=== PATIENT | male | born 1985 | race American Indian/Alaskan Native ===

== ENCOUNTER 2017-12-28 12:24 | Inpatient (IN) | payer MEDICAID ==
[2017-12-28 13:21] LABS: BASO % 0.6 % (0.0-2.0); EOS # 0.1 K/uL (0.0-0.7); EOS % 1.9 % (0.0-4.0); HEMOGLOBIN 12.3 g/dL (12.0-18.0); LYMPH # 1.7 K/uL (1.0-4.3); LYMPH % 36.9 % (20.0-40.0); MEAN CELL VOLUME 81.6 fL (80.0-94.0); MEAN CORPUSCULAR HEMOGLOBIN 27.6 pg (27.0-31.0); MEAN CORPUSCULAR HGB CONC 33.9 g/dL (33.0-37.0); MEAN PLATELET VOLUME 6.9 fL (7.2-11.7); MONO # 0.4 K/uL (0.0-0.8); NEUT # 2.4 K/uL (1.8-7.0); NEUT % 51.6 % (50.0-75.0); RBC 4.44 Mil/uL (4.40-5.90); RED CELL DISTRIBUTION WIDTH 13.7 % (11.5-14.5); WHITE BLOOD COUNT 4.7 K/uL (4.8-10.8)
[2017-12-28 13:36] LABS: BARBITURATES, UR NEGATIVE (NEGATIVE); BENZODIAZEPINES, UR NEGATIVE (NEGATIVE); PHENCYCLIDINE, UR NEGATIVE (NEGATIVE); SQUAMOUS EPITHIAL 1 /hpf (0-5); URINE BILIRUBIN NEGATIVE (NEGATIVE); URINE BLOOD 1+ (NEGATIVE); URINE CLARITY Hazy (Clear); URINE COLOR Yellow (YELLOW); URINE GLUCOSE (UA) NORMAL (Normal); URINE LEUKOCYTE ESTERASE NEG Leu/uL (Negative); URINE PROTEIN 1+ mg/dL (NEGATIVE); URINE UROBILINOGEN NORMAL mg/dL (0.2-1.0)
[2017-12-28 13:40] LABS: ALBUMIN 4.2 g/dL (3.5-5.0); ALT/SGPT 34 U/L (21-72); AST/SGOT 24 U/L (17-59); BLOOD UREA NITROGEN 19 mg/dL (9-20); CALCIUM 9.6 mg/dl (8.6-10.4); GFR NON-AFRICAN AMERICAN > 60; OPIATES, UR POSITIVE (NEGATIVE)
--- NOTE | 2017-12-28 13:51 | C.PDOC ---
History Of Present Illness 32 y/o male presents to the ER for detox from heroin and cocaine. Patient states that he is prescreened. Patient denies having suicidal ideation, homicidal ideation, and active physical complaints. Time Seen by Provider: 12/28/17 12:49 Chief Complaint (Nursing): Substance Abuse History Per: Patient History/Exam Limitations: no limitations Past Medical History Reviewed: Historical Data, Nursing Documentation, Vital Signs Vital Signs: Last Vital Signs Temp 98.4 F 12/28/17 12:36 Pulse 96 H 12/28/17 12:36 Resp 16 12/28/17 12:36 BP 136/90 12/28/17 12:36 Pulse Ox 98 12/28/17 12:36 - Medical History PMH: HTN, Seizures Other Surgeries: Hx of surgeries Family History: States: No Known Family Hx - Social History Hx Alcohol Use: No Hx Substance Use: Yes (last use yesterday) - Immunization History Hx Influenza Vaccination: No Hx Pneumococcal Vaccination: No Review Of Systems Except As Marked, All Systems Reviewed And Found Negative. Constitutional: Negative for: Fever, Chills Physical Exam - Physical Exam Appears: No Acute Distress, Other (tall, thin black male) Skin: Normal Color, Warm, Dry Head: Atraumatic, Normacephalic Eye(s): bilateral: Normal Inspection Nose: Normal Oral Mucosa: Moist Neck: Supple Chest: Symmetrical Cardiovascular: Rhythm Regular Respiratory: Normal Breath Sounds, No Rales, No Rhonchi, No Wheezing Gastrointestinal/Abdominal: Normal Exam, Soft, No Tenderness, No Guarding, No Rebound Neurological/Psych: Oriented x3, Normal Speech ED Course And Treatment - Laboratory Results Result Diagrams: 12/28/17 13:14 12/28/17 13:14 Lab Interpretation: Abnormal (tox + cocaine/opiates) ECG: Interpreted By De ECG Rhythm: Sinus Rhythm ECG Interpretation: Normal O2 Sat by Pulse Oximetry: 98 (RA) Pulse Ox Interpretation: Normal - Radiology CXR: Interpreted by De CXR Interpretation: Yes: No Acute Disease Reevaluation Time: 15:29 Reassessment Condition: Improved - Physician Consult Information Outcome Of Conversation: 1440: d/w Dr. Weiss, Medicine Watch Hairspring Assembler, ok to admit. 1500: Neuro Consult w Dr. Dumont- Neuro Watch Hairspring Assembler ordered Medical Decision Making Medical Decision Making: Plan: --Labs --UA seizure: h/o tbi/seizure ? compliance with depakote 750 PO BID Seizure x 2 in ED Ativan 2 mg IV x 2, Cerebyx 1 g IV Ok for adm on Tele Psych/Detox Consult Detox for regimen as inpt when stable from seizure, transfer to Detox Disposition Doctor Will See Patient In The: Hospital Counseled Patient/Family Regarding: Studies Performed, Diagnosis - Disposition Disposition: HOSPITALIZED Disposition Time: 15:32 Condition: GOOD Forms: [facility] (Indonesian) - Clinical Impression Clinical Impression: Seizure, Heroin abuse, Cocaine abuse - Scribe Statement The provider has reviewed the documentation as recorded by the Sherylibe Venkat Garner Provider Attestation: All medical record entries made by the Scribe were at my direction and personally dictated by me. I have reviewed the chart and agree that the record accurately reflects my personal performance of the history, physical exam, medical decision making, and the department course for this patient. I have also personally directed, reviewed, and agree with the discharge instructions and disposition.
[2017-12-28] MEDS ORDERED: Fosphenytoin 100 MG in Dextrose 5% In Water 50 ML IV STA (14:42)
--- NOTE | 2017-12-28 16:03 | RAD ---
HISTORY: seizure, adm COMPARISON: No prior. TECHNIQUE: Chest, one view. FINDINGS: LUNGS: No focal consolidation. Please note that chest x-ray has limited sensitivity for the detection of pulmonary masses. PLEURA: No significant pleural effusion identified. No definite pneumothorax . CARDIOVASCULAR: Cardiomegaly. No significant atherosclerotic calcification present. OSSEOUS STRUCTURES: No acute osseous abnormality is detected. VISUALIZED UPPER ABDOMEN: Unremarkable. OTHER FINDINGS: None. IMPRESSION: Cardiomegaly.
--- NOTE | 2017-12-28 16:43 | CT ---
Date of service: 12/28/2017 PROCEDURE: CT HEAD WITHOUT CONTRAST. HISTORY: szr, h/o TBI/Seizure COMPARISON: None available. TECHNIQUE: Axial computed tomography images were obtained through the head/brain without intravenous contrast. Radiation dose: Total exam DLP = 1123.51 mGy-cm. This CT exam was performed using one or more of the following dose reduction techniques: Automated exposure control, adjustment of the mA and/or kV according to patient size, and/or use of iterative reconstruction technique. FINDINGS: HEMORRHAGE: No intracranial hemorrhage. BRAIN: There is cystic encephalomalacia in the left posterior parietal subcortical white matter with volume loss and ex vacuo dilatation of the body of the left lateral ventricle. There is no mass, mass effect or abnormal extra-axial fluid collection. VENTRICLES: The ventricles are normal in size, shape and configuration. CALVARIUM: Status post left temporoparietal craniotomy. Status post left frontal and parietal craniectomy and fixation with metallic plates. PARANASAL SINUSES: Predominantly clear. MASTOID AIR CELLS: Predominantly clear. OTHER FINDINGS: The globes are symmetric and normal in appearance. There is a 2.3 x 1.7 cm sebaceous cyst overlying the superficial lobe of the left parotid gland. IMPRESSION: No acute intracranial abnormality. Postsurgical changes in the left frontal and parietal calvarium and status post left parietal temporal craniotomy, cystic encephalomalacia in the left posterior parietal lobe with volume loss and ex vacuo dilatation of body of the left lateral ventricle.
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
[2017-12-29] MEDS: Divalproex 250 mg DR Tab PO SCH ×2 (09:17→17:29)
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
--- NOTE | 2017-12-29 14:38 | CP.PCM.PN ---
Subjective - Date & Time of Evaluation Date of Evaluation: 12/29/17 Time of Evaluation: 14:38 - Subjective Subjective: patient has no further seizures. Awaiting neuro evaluation for any other input Psychiatric evaluation noted patient is cleared discharge by psych. Vital signs are stable physical examination remains unchanged Objective - Vital Signs/Intake and Output Vital Signs (last 24 hours): Temp Pulse Resp BP Pulse Ox 98.5 F 83 20 137/94 H 98 12/29/17 04:45 12/29/17 04:45 12/29/17 04:45 12/29/17 04:45 12/29/17 04:45 - Medications Medications: Current Medications Carbamazepine (Tegretol-Xr) 600 mg PO BID [facility] Last Admin: 12/29/17 09:18 Dose: 600 mg Divalproex Sodium (Depakote Dr) 750 mg PO BID [facility] Last Admin: 12/29/17 09:17 Dose: 750 mg Heparin Sodium (Porcine) (Heparin) 5,000 units SC Q12H [facility] Last Admin: 12/29/17 09:18 Dose: Not Given Trazodone HCl (Desyrel) 100 mg PO DAILY [facility] Last Admin: 12/29/17 09:18 Dose: 100 mg - Labs Labs: 12/28/17 13:14 12/28/17 13:14
[2017-12-30 00:55] VITALS: RESP 20
[2017-12-30 07:55] VITALS: BP 133/85; TEMP 98.2; O2SAT 98
[2017-12-30 09:16] VITALS: PULSE 104
[2017-12-30] MEDS: Divalproex 250 mg DR Tab PO SCH (09:33)
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
--- NOTE | 2017-12-30 14:24 | CP.PCM.DIS ---
Provider - Provider Date of Admission: 12/28/17 15:33 Attending physician: Lakshmi Weiss MD Time Spent in preparation of Discharge (in minutes): 36 Hospital Course - Lab Results Lab Results: Most Recent Lab Values WBC 4.7 K/uL (4.8-10.8) L 12/28/17 13:14 RBC 4.44 Mil/uL (4.40-5.90) 12/28/17 13:14 Hgb 12.3 g/dL (12.0-18.0) 12/28/17 13:14 Hct 36.3 % (35.0-51.0) 12/28/17 13:14 MCV 81.6 fL (80.0-94.0) 12/28/17 13:14 MCH 27.6 pg (27.0-31.0) 12/28/17 13:14 MCHC 33.9 g/dL (33.0-37.0) 12/28/17 13:14 RDW 13.7 % (11.5-14.5) 12/28/17 13:14 Plt Count 340 K/uL (130-400) 12/28/17 13:14 MPV 6.9 fL (7.2-11.7) L 12/28/17 13:14 Neut % (Auto) 51.6 % (50.0-75.0) 12/28/17 13:14 Lymph % (Auto) 36.9 % (20.0-40.0) 12/28/17 13:14 [place] % (Auto) 9.0 % (0.0-10.0) 12/28/17 13:14 Eos % (Auto) 1.9 % (0.0-4.0) 12/28/17 13:14 Baso % (Auto) 0.6 % (0.0-2.0) 12/28/17 13:14 Neut # (Auto) 2.4 K/uL (1.8-7.0) 12/28/17 13:14 Lymph # (Auto) 1.7 K/uL (1.0-4.3) 12/28/17 13:14 [place] # (Auto) 0.4 K/uL (0.0-0.8) 12/28/17 13:14 Eos # (Auto) 0.1 K/uL (0.0-0.7) 12/28/17 13:14 Baso # (Auto) 0.0 K/uL (0.0-0.2) 12/28/17 13:14 Sodium 142 mmol/L (132-148) 12/28/17 13:14 Potassium 4.4 mmol/L (3.6-5.2) 12/28/17 13:14 Chloride 104 mmol/L (98-107) 12/28/17 13:14 Carbon Dioxide 27 mmol/L (22-30) 12/28/17 13:14 Anion Gap 16 (10-20) 12/28/17 13:14 BUN 19 mg/dL (9-20) 12/28/17 13:14 Creatinine 1.0 mg/dL (0.8-1.5) 12/28/17 13:14 Est GFR ( Amer) > 60 12/28/17 13:14 Est GFR (Non-Af Amer) > 60 12/28/17 13:14 POC Glucose (mg/dL) 95 mg/dL (65-110) 12/28/17 14:31 Random Glucose 126 mg/dL (75-110) H 12/28/17 13:14 Calcium 9.6 mg/dl (8.6-10.4) 12/28/17 13:14 Phosphorus 3.2 mg/dL (2.5-4.5) 12/28/17 13:14 Magnesium 2.2 mg/dL (1.6-2.3) 12/28/17 13:14 Total Bilirubin 0.4 mg/dL (0.2-1.3) 12/28/17 13:14 AST 24 U/L (17-59) 12/28/17 13:14 ALT 34 U/L (21-72) 12/28/17 13:14 Alkaline Phosphatase 69 U/L (38-126) 12/28/17 13:14 Ammonia 40 umol/L (9-33) H 12/30/17 11:11 Total Protein 8.4 g/dL (6.3-8.3) H 12/28/17 13:14 Albumin 4.2 g/dL (3.5-5.0) 12/28/17 13:14 Globulin 4.2 gm/dL (2.2-3.9) H 12/28/17 13:14 Albumin/Globulin Ratio 1.0 (1.0-2.1) 12/28/17 13:14 Urine Color Yellow (YELLOW) 12/28/17 13:14 Urine Clarity Hazy (Clear) 12/28/17 13:14 Urine pH 5.0 (5.0-8.0) 12/28/17 13:14 Ur Specific [place] 1.027 (1.003-1.030) 12/28/17 13:14 Urine Protein 1+ mg/dL (NEGATIVE) H 12/28/17 13:14 Urine Glucose (UA) Normal mg/dL (Normal) 12/28/17 13:14 Urine Ketones Negative mg/dL (NEGATIVE) 12/28/17 13:14 Urine Blood 1+ (NEGATIVE) H 12/28/17 13:14 Urine Nitrate Negative (NEGATIVE) 12/28/17 13:14 Urine Bilirubin Negative (NEGATIVE) 12/28/17 13:14 Urine Urobilinogen Normal mg/dL (0.2-1.0) 12/28/17 13:14 Ur Leukocyte Esterase Neg [place]/uL (Negative) 12/28/17 13:14 Urine WBC (Auto) 8 /hpf (0-5) H 12/28/17 13:14 Urine RBC (Auto) 29 /hpf (0-3) H 12/28/17 13:14 Ur Squamous Epith Cells 1 /hpf (0-5) 12/28/17 13:14 Urine Opiates Screen Positive (NEGATIVE) H 12/28/17 13:14 Urine Methadone Screen Negative (NEGATIVE) 12/28/17 13:14 Ur Barbiturates Screen Negative (NEGATIVE) 12/28/17 13:14 Ur Phencyclidine Scrn Negative (NEGATIVE) 12/28/17 13:14 Ur Amphetamines Screen Negative (NEGATIVE) 12/28/17 13:14 U Benzodiazepines Scrn Negative (NEGATIVE) 12/28/17 13:14 U Oth Cocaine Metabols Positive (NEGATIVE) H 12/28/17 13:14 U Cannabinoids Screen Negative (NEGATIVE) 12/28/17 13:14 Alcohol, Quantitative < 10 mg/dl (0-10) 12/28/17 13:14 - Hospital Course Hospital Course: Patient was smoking heroin 5 bags and then subsequently patient started getting withdrawal symptoms or nausea or vomiting abdominal cramps and presented to the ER for withdrawal symptoms. In the ER patient had a seizure activity and was co ntrolled with IV medication patient is admitted on the medical floor for seizure disorder. Patient has previous history of seizures and has substance abuse. Neuro and psychiatric consults were requested. Psychiatric department cleared the patient for discharge Neurology consult was obtained and recommended to continue Depakote and add Keppra. During the hospitalization patient had no further seizures or any other medical issues and was discharged on his medications on the med sheet. Discharge Plan - Follow Up Plan Condition: GOOD Disposition: HOME/ ROUTINE
--- NOTE | 2017-12-30 14:30 | CP.PCM.PN ---
Subjective - Date & Time of Evaluation Date of Evaluation: 12/30/17 Time of Evaluation: 14:29 - Subjective Subjective: PT CLEARED BY DR. LO FOR D/C HOME TODAY. CLEARED BY PSYCH AND NEURO. RX SENT TO PT'S PHARMACY TO CONTINUE KEPPRA 500 MG PO BID PER NEURO RECOMMENDATIONS. PT TO F/U WITH HIS PMD AND NEUROLOGIST. NO FURTHER ORDERS. -FOLLOW UP WITH YOUR PRIMARY DOCTOR IN THE OFFICE WITHIN 5-7 DAYS---CALL THE OFFICE TO MAKE YOUR APPOINTMENT. -FOLLOW UP WITH YOUR NEUROLOGIST IN THE OFFICE WITHIN 5-7 DAYS---CALL THE OFFICE TO MAKE YOUR APPOINTMENT. -CONTINUE HOME MEDICATIONS USUAL. -PRESCRIPTION FOR KEPPRA 500 MG (FOR SEIZURE) SENT TO YOUR PHARMACY---TAKE 1 TABLET BY MOUTH TWICE A DAY (MORNING AND EVENING). DO NOT SKIP ANY DOSES. -FOR FURTHER QUESTIONS OR CONCERNS, CONTACT DR. LO. Objective - Vital Signs/Intake and Output Vital Signs (last 24 hours): Temp Pulse Resp BP Pulse Ox 98.2 F 104 H 20 133/85 98 12/30/17 07:20 12/30/17 09:16 12/30/17 07:20 12/30/17 07:20 12/30/17 07:20 Intake and Output: 12/30/17 12/30/17 06:59 18:59 Intake Total 400 Balance 400 - Medications Medications: Current Medications Divalproex Sodium (Arielle [place]) 750 mg PO BID [facility] Last Admin: 12/30/17 09:33 Dose: 750 mg Heparin Sodium (Porcine) (Heparin) 5,000 units SC Q12H [facility] Last Admin: 12/30/17 09:34 Dose: Not Given Hydroxyzine HCl (Atarax) 25 mg PO Q6 PRN PRN Reason: Anxiety Levetiracetam (Keppra) 500 mg PO BID [facility] Methadone HCl (Methadone) 15 mg PO DAILY [facility]; Taper Stop: 01/02/18 09:59 Last Admin: 12/30/17 09:32 Dose: 15 mg Trazodone HCl (Desyrel) 100 mg PO DAILY [facility] Last Admin: 12/30/17 09:33 Dose: 100 mg - Labs Labs: 12/28/17 13:14 12/28/17 13:14
[2017-12-30] MEDS ORDERED: levETIRAcetam 100 mg/ml (5ml) Oral Syringe PO SCH (18:00)
--- NOTE | 2018-01-02 07:35 | CARD ---
APPROVED REPORT Date of service: 12/28/2017 EKG Measurement Heart [id number] ME 160P55 [id number] <Conclusion> Normal sinus rhythm Voltage criteria for left ventricular hypertrophy Abnormal ECG
== END 2017-12-30 15:24 | disposition home or self-care (01) | DRG 889 ==
LOC: C.ER 12:24 → C.9E 15:33 → C.6T 17:47
PROVIDERS: ADMIT Internal Medicine Cardiovascular Disease; ATTEND Internal Medicine Cardiovascular Disease
PROC: HZ81ZZZ Medication Management for Substance Abuse Treatment, Methadone Maintenance (ICD-10-PCS; principal; 2017-12-29)
PROC: HZ5 Substance Abuse Treatment, Individual Psychotherapy (ICD-10-PCS; 2017-12-29)
PROC: HZ59ZZZ Individual Psychotherapy for Substance Abuse Treatment, Supportive (ICD-10-PCS; 2017-12-29)
DX: G40.909 Epilepsy, unspecified, not intractable, without status epilepticus (principal); F11.23 Opioid dependence with withdrawal; F14.10 Cocaine abuse, uncomplicated; I48.91 Unspecified atrial fibrillation; I10 Essential (primary) hypertension; F17.210 Nicotine dependence, cigarettes, uncomplicated; E78.00 Pure hypercholesterolemia, unspecified; Z87.820 Personal history of traumatic brain injury; Z79.82 Long term (current) use of aspirin